=== PATIENT | female | born 1985 | race Caucasian/White ===

== ENCOUNTER 2017-06-28 21:33 | Emergency (ER) | payer MEDICAID ==
[~2017-06-28 21:33] MED LIST: AMOXIL500 MG PO; BUDEPRION XL150 MG PO; HYDROCODONE1 TABLET PO; MOTRIN600 M1 PO; PREDNISONE50 MG PO; TAMIFLU 75MG CA75 MG PO; TOPIRAMATE25 MG PO
[2017-06-28 22:31] VITALS: BP 00/00
== END 2017-06-28 22:31 | disposition left against medical advice (07) ==
LOC: ER 21:33
DX: Z53.29 Procedure and treatment not carried out because of patient's decision for other reasons (principal); S89.92XA Unspecified injury of left lower leg, initial encounter

== ENCOUNTER 2017-06-28 22:56 | Emergency (ER) | payer MEDICAID ==
[~2017-06-28] VITALS: Ht 167.6 cm; Wt 54.4 kg
[2017-06-29 00:50] VITALS: BP 117/73
--- NOTE | 2017-06-29 01:04 | Emergency Room Report ---
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 N Clinical Suspician of Infection? N Mental Status: 1 - Regular (Normal Baseline) Sepsis Risk:Low Sepsis Risk Have you (or family members/close friends) recently traveled outside the [place]? N If Yes, where/when: Have you had exposure to infectious disease within the past month? N TB? Other? Specify: Source patient, police Exam Limitations no limitations Comment This is a 32-year-old female presenting to the emergency room under police arrest, in custody, for medical clearance prior to incarceration. She is here for alleged drug use. ALLERGIES Coded Allergies: No Known Allergies (06/10/17) Home Medications Active Scripts Ibuprofen (Motrin) 600 MG PO Q6HP PRN pain #20 TAB Prov: 10/05/14 Reported Medications Topiramate 25 MG PO DAILY #30 Bupropion Hcl (Bupropion XL) 150 MG PO DAILY #30 History Medical History General Angina: No NV: No Hypertension? No Hyperlipidemia? No CHF? No COPD? No Asthma? No Hernia? Yes CVA? No Seizures? No Diabetes? No UTI? No Stones? No GB Disease: No Hepatitis? No Cataracts? No Glaucoma? No MRSA? No TB? No Cancer? 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 LMP N/A Family History Family Hx Diabetes No CAD Yes Hypertension Yes Hyperlipidemia Yes Cancer Yes TB No Social History Smoking Hx Smoker: Smoker, Status Unknown Tobacco: No Packs/day < 1 Pack Alcohol Alcohol: No Review of Systems All Other Systems Reviewed and Negative Comment for medical clearance Physical Exam Vital Signs Vital Signs Date Time Temp Pulse Resp B/P Pulse O2 O2 Flow FiO2 Ox Delivery Rate 06/29 0050 98.8 83 14 117/73 98 06/28 2338 98.8 83 14 117/73 98 06/28 2331 98.8 83 14 117/73 98 General Appearance normal appearance, WD/WN Respiratory Status Yes: trachea midline, chest symmetrical, non tender chest. No: respiratory distress. Lung Sounds bilateral: normal breath sounds, lungs clear. 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 No Results/Orders Patient is medically clear for incarceration, AAOx3. Departure Departure Time of Disposition 2345 Disposition DC/XFER Other Type Institution Clinical Impression Primary Impression: Medical clearance for incarceration Condition STABLE Referrals [facility] Patient Instructions DI for Drug Abuse and Drug Addiction Additional Instructions Please follow up with [facility] upon [facility]ave from [facility]. Discharge Counseling Counseled pt/family regarding diagnosis, medications/RX, home care, follow up needs Comment Please follow up with [facility] upon releave from [facility]. ED Critical Care Critical Care No at [id number]
--- NOTE | 2017-06-29 01:04 | Emergency Room Report ---
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 N Clinical Suspician of Infection? N Mental Status: 1 - Regular (Normal Baseline) Sepsis Risk:Low Sepsis Risk Have you (or family members/close friends) recently traveled outside the [place]? N If Yes, where/when: Have you had exposure to infectious disease within the past month? N TB? Other? Specify: Source patient, police Exam Limitations no limitations Comment This is a 32-year-old female presenting to the emergency room under police arrest, in custody, for medical clearance prior to incarceration. She is here for alleged drug use. ALLERGIES Coded Allergies: No Known Allergies (06/10/17) Home Medications Active Scripts Ibuprofen (Motrin) 600 MG PO Q6HP PRN pain #20 TAB Prov: 10/05/14 Reported Medications Topiramate 25 MG PO DAILY #30 Bupropion Hcl (Bupropion XL) 150 MG PO DAILY #30 History Medical History General Angina: No CT: No Hypertension? No Hyperlipidemia? No CHF? No COPD? No Asthma? No Hernia? Yes CVA? No Seizures? No Diabetes? No UTI? No Stones? No GB Disease: No Hepatitis? No Cataracts? No Glaucoma? No MRSA? No TB? No Cancer? 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 N/A Family History Family Hx Diabetes No CAD Yes Hypertension Yes Hyperlipidemia Yes Cancer Yes TB No Social History Smoking Hx Smoker: Smoker, Status Unknown Tobacco: No Packs/day < 1 Pack Alcohol Alcohol: No Review of Systems All Other Systems Reviewed and Negative Comment for medical clearance Physical Exam Vital Signs Vital Signs Date Time Temp Pulse Resp B/P Pulse O2 O2 Flow FiO2 Ox Delivery Rate 06/29 0050 98.8 83 14 117/73 98 06/28 2338 98.8 83 14 117/73 98 06/28 2331 98.8 83 14 117/73 98 General Appearance normal appearance, WD/WN Respiratory Status Yes: trachea midline, chest symmetrical, non tender chest. No: respiratory distress. Lung Sounds bilateral: normal breath sounds, lungs clear. 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 No Results/Orders Patient is medically clear for incarceration, AAOx3. Departure Departure Time of Disposition 2345 Disposition DC/XFER Other Type Institution Clinical Impression Primary Impression: Medical clearance for incarceration Condition STABLE Referrals [facility] Patient Instructions DI for Drug Abuse and Drug Addiction Additional Instructions Please follow up with [facility]. Discharge Counseling Counseled pt/family regarding diagnosis, medications/RX, home care, follow up needs Comment Please follow up with [facility] upon [facility]ave [facility]. ED Critical Care Critical Care No at [id number]
== END 2017-06-28 23:51 | disposition other institution (70) ==
LOC: ER 22:56
DX: Z02.89 Encounter for other administrative examinations (principal); F17.210 Nicotine dependence, cigarettes, uncomplicated

== ENCOUNTER → 2017-08-25 | Outpatient (CLI) | payer MEDICAID ==
[2017-08-25 14:27] LABS: HEMOGLOBIN 13.3 g/dL (12.2-16.2); LYMPH # 2.6 K/mm3 (0.7-4.5); LYMPH % 33.2 % (10-50.0)
[2017-08-25 15:38] LABS: BUN 12 mg/dL (7-18)
[2017-08-25 15:42] LABS: GFR (ESTIMATED) 96 ML/MIN (59-)
[2017-08-26 08:48] LABS: HBsAg Screen Negative (Negative); Hep A Ab, IgM Negative (Negative); Hep B Core Ab, IgM Negative (Negative); Hep C Virus Ab <0.1 (0.0-0.9); RA Latex Turbid. <10.0 IU/mL (0.0-13.9)
[2017-08-26 16:37] LABS: Antinuclear Antibodies, IFA Negative (.)
== END ==
LOC: LAB 13:46
PROVIDERS: Emergency Medicine
DX: R53.83 Other fatigue (principal)